=== PATIENT | male | born 1930 | race Caucasian/White ===

== ENCOUNTER 2019-06-04 15:07 | Inpatient (IN) ==
[2019-06-04] MEDS ORDERED: PANTOPRAZOLE 40 MG VIAL IV STA (15:25)
[2019-06-04] MEDS ORDERED: SODIUM CHLORIDE 0.9% 500 ML IV STA (15:25)
[2019-06-04 15:49] LABS: Basophils % 0.3 % (0.0-0.8); Eosinophils % 0.2 % (0.00-10.9); Hematocrit 24.1 VOL% (42.0-52.0); Hemoglobin 7.8 GM/DL (14.0-18.0); Immature Granulocytes % 0.8 %; Immature Granulocytes Absolute 0.09 #; Lymphocytes % 8.9 % (21.2-54.2); Mean Corpuscular HGB Conc 32.4 GM/DL (32-36); Mean Corpuscular Volume 94.1 FL (87-102); Monocytes % 8.9 % (1.7-12.7); Neutrophils % 80.9 % (38.7-73.9); Platelet Count 277 T/CUMM (130-400); Red Blood Count 2.56 MC/CUMM (3.8-5.5); Red Cell Distribution Width 13.9 % (9.3-17.3); White Blood Count 11.1 T/CUMM (4-12)
[2019-06-04 16:00] LABS: Albumin 3.5 G/DL (3.4-5.0); Bilirubin,Total 0.7 MG/DL (0.2-1.0); Calcium 8.5 MG/DL (8.5-10.1); Osmolality,Calculated 280.2 MOS/KG (273-304); Total Protein 5.9 G/DL (6.4-8.3)
[2019-06-04 16:04] LABS: INR 1.5; PT Patient Result 15.6 SECS (9.8-11.9); Partial Thromboplastin Time 39.9 SECS (23.9-33.8)
[2019-06-04] MEDS ORDERED: DEXTROSE 50% 25 GM/50 ML VIAL IV PRN (17:09)
[2019-06-04] MEDS ORDERED: CALCIUM CARBONATE CHEW 500 MG TABLET PO PRN (17:09)
[2019-06-04] MEDS ORDERED: SIMETHICONE CHEW 125 MG TABLET PO PRN (17:09)
[2019-06-04] MEDS ORDERED: guaiFENesin/DM ER 600-30 MG TABLET PO PRN (17:09)
[2019-06-04] MEDS ORDERED: hydrALAZINE 20 MG/1 ML VIAL IV PRN (17:09)
[2019-06-04] MEDS ORDERED: LACTULOSE 20 GM/30 ML UDCUP PO PRN (17:09)
[2019-06-04] MEDS ORDERED: BISACODYL 5 MG TABLET PO PRN (17:09)
[2019-06-04] MEDS ORDERED: ALUMINUM/MAGNES/SIMETH MAX STR 30 ML UDCUP PO PRN (17:09)
[2019-06-04] MEDS ORDERED: GLUCAGON 1 MG VIAL IM PRN (17:09)
[2019-06-04] MEDS ORDERED: ZALEPLON 5 MG CAPSULE PO PRN (17:09)
[2019-06-04] MEDS ORDERED: ONDANSETRON 4 MG/2 ML VIAL IV PRN (17:09)
[2019-06-04] MEDS ORDERED: ACETAMINOPHEN 325 MG TABLET PO PRN (17:09)
[2019-06-04] MEDS ORDERED: DOCUSATE SODIUM 100 MG CAPSULE PO PRN (17:09)
[2019-06-04] MEDS ORDERED: SODIUM CHLORIDE 0.9% 1,000 ML IV PRN (17:14)
[2019-06-04] MEDS: SODIUM CHLORIDE 0.9% 1,000 ML IV SCH (19:07)
[2019-06-04] MEDS: PANTOPRAZOLE 40 MG VIAL IV SCH (20:49)
[2019-06-04] MEDS: cilostazoL 50 MG TABLET PO SCH (20:49)
[2019-06-04] MEDS ORDERED: ATORVASTATIN 10 MG TABLET PO SCH (21:00)
[2019-06-04 23:38] LABS: Apearance,Urine CLEAR (Clear); Bacteria,Urine Occasional /HPF (Few); Bilirubin,Urine Negative (Negative); Blood, Urine Negative (Negative); Glucose,Urine (UA) Negative (Negative); Hyaline Casts,Urine 21 /LPF (0-3); Ketones,Urine Negative (Negative); Mucus,Urine Occasional /LPF (Occasional); Nitrite,Urine Negative (Negative); Protein,Urine Negative; Squamous Epithelial Cell,Urine Occasional /HPF (0-10); Urine Color Yellow (Yellow); Urine Specific Gravity 1.017 (1.001-1.035); Urine Urobilinogen < 2.0 EU/DL (0.2-1.0); WBC,Urine 3 /HPF (0-6)
[2019-06-05 00:21] LABS: RBC,Urine 2 /HPF (0-4)
[2019-06-05 06:23] LABS: Basophils % 0.3 % (0.0-0.8); Eosinophils % 0.1 % (0.00-10.9); Hematocrit 23.9 VOL% (42.0-52.0); Immature Granulocytes % 0.8 %; Immature Granulocytes Absolute 0.11 #; Lymphocytes # 1.1 10*3/uL (1.4-4.0); Lymphocytes % 8.3 % (21.2-54.2); Mean Corpuscular HGB Conc 33.5 GM/DL (32-36); Mean Corpuscular Volume 91.2 FL (87-102); Mean Platelet Volume 10.5 FL (9.6-12.0); Monocytes % 8.3 % (1.7-12.7); Neutrophils % 82.2 % (38.7-73.9); Platelet Count 213 T/CUMM (130-400); Red Blood Count 2.62 MC/CUMM (3.8-5.5); Red Cell Distribution Width 14.1 % (9.3-17.3); White Blood Count 13.1 T/CUMM (4-12)
[2019-06-05 06:43] LABS: % Iron Saturation 52.2 % (18-50); Ferritin 30.8 ng/ml (26-388)
[2019-06-05 06:48] LABS: Bilirubin,Total 1.8 MG/DL (0.2-1.0); Calcium 8.2 MG/DL (8.5-10.1); Osmolality,Calculated 288.7 MOS/KG (273-304); Risk Ratio 1.56; Thyroid Stimulating Hormone 1.61 uIU/ml (0.358-3.74); Total Protein 5.2 G/DL (6.4-8.3)
[2019-06-05 07:16] LABS: Folate 14.3 NG/ML (5.4-24.0)
[2019-06-05] MEDS: atenoloL 25 MG TABLET PO SCH (09:51)
[2019-06-05] MEDS: PANTOPRAZOLE 40 MG VIAL IV SCH ×2 (09:51→21:42)
[2019-06-05] MEDS: SERTRALINE 25 MG TABLET PO SCH (09:51)
[2019-06-05] MEDS: cilostazoL 50 MG TABLET PO SCH ×2 (09:51→21:41)
[2019-06-05] MEDS: SODIUM CHLORIDE 0.9% 1,000 ML IV SCH (15:47)
[2019-06-05] MEDS: ATORVASTATIN 10 MG TABLET PO SCH (21:41)
[2019-06-05] MEDS: OMEGA 3 ACID ETHYL ESTERS 1 GM CAPSULE PO SCH (21:41)
[2019-06-06] MEDS: SODIUM CHLORIDE 0.9% 1,000 ML IV SCH (04:37)
[2019-06-06 04:57] LABS: Albumin 2.4 G/DL (3.4-5.0); Bilirubin,Total 1.2 MG/DL (0.2-1.0); Calcium 7.8 MG/DL (8.5-10.1); Osmolality,Calculated 288.7 MOS/KG (273-304); Total Protein 4.2 G/DL (6.4-8.3)
[2019-06-06 05:23] LABS: Basophils % 0.1 % (0.0-0.8); Eosinophils % 0.4 % (0.00-10.9); Immature Granulocytes Absolute 0.08 #; Lymphocytes # 1.2 10*3/uL (1.4-4.0); Lymphocytes % 14.5 % (21.2-54.2); Mean Corpuscular HGB Conc 32.7 GM/DL (32-36); Mean Corpuscular Volume 93.4 FL (87-102); Mean Platelet Volume 11.4 FL (9.6-12.0); Monocytes % 13.7 % (1.7-12.7); Neutrophils % 70.3 % (38.7-73.9); Platelet Count 167 T/CUMM (130-400); Red Blood Count 1.67 MC/CUMM (3.8-5.5); Red Cell Distribution Width 14.9 % (9.3-17.3); White Blood Count 8.4 T/CUMM (4-12)
[2019-06-06 05:40] LABS: Hematocrit 15.6 VOL% (42.0-52.0); Hemoglobin 5.1 GM/DL (14.0-18.0)
[2019-06-06] MEDS ORDERED: SODIUM CHLORIDE 0.9% 1,000 ML IV PRN ×4 (05:44→16:24)
[2019-06-06] MEDS: COENZYME Q10 100 MG CAPSULE PO SCH (10:16)
[2019-06-06] MEDS: CYANOCOBALAMIN 500 MCG TABLET PO SCH (10:17)
[2019-06-06] MEDS: OMEGA 3 ACID ETHYL ESTERS 1 GM CAPSULE PO SCH ×2 (10:17→21:02)
[2019-06-06] MEDS: cilostazoL 50 MG TABLET PO SCH ×2 (10:18→21:02)
[2019-06-06] MEDS: SERTRALINE 25 MG TABLET PO SCH (10:18)
[2019-06-06] MEDS: atenoloL 25 MG TABLET PO SCH (10:19)
[2019-06-06] MEDS: PANTOPRAZOLE 40 MG VIAL IV SCH ×2 (10:22→21:03)
[2019-06-06] MEDS ORDERED: POLYETHYLENE GLYCOL 3350/ELECTROLYTES 4,000 ML BOTTLE PO ONE (18:00)
[2019-06-06] MEDS: ATORVASTATIN 10 MG TABLET PO SCH (21:02)
[2019-06-07 04:15] LABS: Basophils % 0.3 % (0.0-0.8); Eosinophils # 0.1 10*3/uL (0.0-0.87); Eosinophils % 0.5 % (0.00-10.9); Hematocrit 23.7 VOL% (42.0-52.0); Lymphocytes # 1.6 10*3/uL (1.4-4.0); Lymphocytes % 15.2 % (21.2-54.2); Mean Corpuscular HGB Conc 33.8 GM/DL (32-36); Mean Corpuscular Volume 90.5 FL (87-102); Mean Platelet Volume 10.6 FL (9.6-12.0); Monocytes % 12.1 % (1.7-12.7); Neutrophils % 70.9 % (38.7-73.9); Platelet Count 143 T/CUMM (130-400); Red Blood Count 2.62 MC/CUMM (3.8-5.5); White Blood Count 10.4 T/CUMM (4-12)
[2019-06-07 04:42] LABS: Albumin 2.4 G/DL (3.4-5.0); Bilirubin,Total 1.2 MG/DL (0.2-1.0); Calcium 7.6 MG/DL (8.5-10.1); Osmolality,Calculated 292.4 MOS/KG (273-304); Total Protein 4.2 G/DL (6.4-8.3)
[2019-06-07] MEDS ORDERED: MAGNESIUM SULF RIDER 4 GM in PREMIX 1 EACH IV ONE (09:02)
[2019-06-07] MEDS ORDERED: LIDOCAINE 2% 5 ML VIAL ONE (09:53)
[2019-06-07] MEDS ORDERED: propofoL 200 MG/20 ML VIAL IV ONE (09:53)
[2019-06-07] MEDS ORDERED: ETOMIDATE 40 MG/20 ML VIAL IV ONE (09:54)
[2019-06-07] MEDS ORDERED: PHENYLEPHRINE 1 MG/10 ML SYRINGE IV ONE (09:54)
[2019-06-07] MEDS: PANTOPRAZOLE 40 MG VIAL IV SCH ×2 (12:28→21:22)
[2019-06-07] MEDS: OMEGA 3 ACID ETHYL ESTERS 1 GM CAPSULE PO SCH ×2 (12:32→21:21)
[2019-06-07] MEDS: COENZYME Q10 100 MG CAPSULE PO SCH (12:34)
[2019-06-07] MEDS: CYANOCOBALAMIN 500 MCG TABLET PO SCH (12:36)
[2019-06-07] MEDS: SERTRALINE 25 MG TABLET PO SCH (12:36)
[2019-06-07] MEDS: cilostazoL 50 MG TABLET PO SCH (12:37)
[2019-06-07 14:35] LABS: Hematocrit 26.7 VOL% (42.0-52.0); Hemoglobin 8.5 GM/DL (14.0-18.0)
[2019-06-07] MEDS: SODIUM CHLORIDE 0.9% 1,000 ML IV SCH (15:07)
[2019-06-07] MEDS: FOLIC ACID 1 MG TABLET PO SCH (15:09)
[2019-06-07] MEDS: ATORVASTATIN 10 MG TABLET PO SCH (21:21)
[2019-06-07] MEDS: LORazepam 2 MG/1 ML VIAL IV PRN (21:30)
[2019-06-07] MEDS ORDERED: HALOPERIDOL 5 MG/ML AMP IM ONE (22:29)
[2019-06-08 05:27] LABS: Basophils % 0.1 % (0.0-0.8); Eosinophils % 0.1 % (0.00-10.9); Hematocrit 23.7 VOL% (42.0-52.0); Hemoglobin 7.8 GM/DL (14.0-18.0); Immature Granulocytes Absolute 0.08 #; Lymphocytes # 0.9 10*3/uL (1.4-4.0); Mean Corpuscular HGB Conc 32.9 GM/DL (32-36); Mean Corpuscular Volume 93.3 FL (87-102); Mean Platelet Volume 10.6 FL (9.6-12.0); Monocytes % 9.7 % (1.7-12.7); Neutrophils % 78.1 % (38.7-73.9); Platelet Count 158 T/CUMM (130-400); Red Blood Count 2.54 MC/CUMM (3.8-5.5); Red Cell Distribution Width 15.7 % (9.3-17.3); White Blood Count 8.4 T/CUMM (4-12)
[2019-06-08] MEDS ORDERED: MAGNESIUM SULF RIDER 4 GM in PREMIX 1 EACH IV PRN (08:08)
[2019-06-08] MEDS: PANTOPRAZOLE 40 MG VIAL IV SCH ×2 (09:47→20:38)
[2019-06-08] MEDS: FOLIC ACID 1 MG TABLET PO SCH (09:47)
[2019-06-08] MEDS: OMEGA 3 ACID ETHYL ESTERS 1 GM CAPSULE PO SCH ×2 (09:47→20:37)
[2019-06-08] MEDS: SERTRALINE 25 MG TABLET PO SCH (09:47)
[2019-06-08] MEDS: atenoloL 25 MG TABLET PO SCH (09:47)
[2019-06-08] MEDS: CYANOCOBALAMIN 500 MCG TABLET PO SCH (09:47)
[2019-06-08] MEDS: THIAMINE 100 MG TABLET PO SCH (09:47)
[2019-06-08] MEDS: COENZYME Q10 100 MG CAPSULE PO SCH (11:06)
[2019-06-08] MEDS: SODIUM CHLORIDE 0.9% 1,000 ML IV SCH (11:07)
[2019-06-08] MEDS ORDERED: HALOPERIDOL 5 MG/ML AMP IM ONE (11:49)
[2019-06-08 13:10] LABS: Hematocrit 27.1 VOL% (42.0-52.0); Hemoglobin 8.8 GM/DL (14.0-18.0)
[2019-06-08] MEDS: ATORVASTATIN 10 MG TABLET PO SCH (20:38)
[2019-06-09 05:09] LABS: Basophils % 0.1 % (0.0-0.8); Hematocrit 24.7 VOL% (42.0-52.0); Immature Granulocytes % 0.8 %; Immature Granulocytes Absolute 0.06 #; Lymphocytes # 0.8 10*3/uL (1.4-4.0); Lymphocytes % 11.1 % (21.2-54.2); Mean Corpuscular HGB Conc 32.4 GM/DL (32-36); Mean Corpuscular Volume 93.2 FL (87-102); Mean Platelet Volume 10.9 FL (9.6-12.0); Monocytes % 11.1 % (1.7-12.7); Neutrophils % 76.9 % (38.7-73.9); Platelet Count 143 T/CUMM (130-400); Red Blood Count 2.65 MC/CUMM (3.8-5.5); Red Cell Distribution Width 15.9 % (9.3-17.3); White Blood Count 7.5 T/CUMM (4-12)
[2019-06-09 05:24] LABS: Osmolality,Calculated 289.3 MOS/KG (273-304)
[2019-06-09] MEDS: MAGNESIUM SULF RIDER 2 GM in PREMIX 1 EACH IV PRN (06:39)
[2019-06-09] MEDS: POTASSIUM CHLORIDE RIDER 10 MEQ in PREMIX 1 EACH IV PRN ×3 (06:39→10:12)
[2019-06-09] MEDS ORDERED: POTASSIUM CHLORIDE 20 MEQ TABLET PO PRN (07:07)
[2019-06-09] MEDS: COENZYME Q10 100 MG CAPSULE PO SCH (08:50)
[2019-06-09] MEDS: atenoloL 25 MG TABLET PO SCH (08:51)
[2019-06-09] MEDS: OMEGA 3 ACID ETHYL ESTERS 1 GM CAPSULE PO SCH ×2 (08:51→21:52)
[2019-06-09] MEDS: SERTRALINE 25 MG TABLET PO SCH (08:51)
[2019-06-09] MEDS: CYANOCOBALAMIN 500 MCG TABLET PO SCH (08:51)
[2019-06-09] MEDS: THIAMINE 100 MG TABLET PO SCH (08:51)
[2019-06-09] MEDS: FOLIC ACID 1 MG TABLET PO SCH (08:51)
[2019-06-09] MEDS: PANTOPRAZOLE 40 MG VIAL IV SCH ×2 (08:53→21:34)
[2019-06-09] MEDS: SODIUM CHLORIDE 0.9% 1,000 ML IV SCH (08:53)
[2019-06-09] MEDS: LEVOFLOXACIN INJ 750 MG in PREMIX 1 EACH IV SCH (12:19)
[2019-06-09] MEDS ORDERED: TUBERCULIN SKIN TEST 0.1 ML SYRINGE INTRADERM ONE (13:30)
[2019-06-09] MEDS: ALBUTEROL/IPRATROPIUM 3 ML NEB RESP TX SCH ×3 (13:50→23:31)
[2019-06-09] MEDS: CEFEPIME 1,000 MG in SODIUM CHLORIDE 0.9% 100 ML IV SCH ×2 (15:11→21:33)
[2019-06-09] MEDS: ATORVASTATIN 10 MG TABLET PO SCH (21:50)
[2019-06-10] MEDS: LORazepam 2 MG/1 ML VIAL IV PRN (00:26)
[2019-06-10] MEDS: CEFEPIME 1,000 MG in SODIUM CHLORIDE 0.9% 100 ML IV SCH ×4 (03:46→20:32)
[2019-06-10] MEDS: ALBUTEROL/IPRATROPIUM 3 ML NEB RESP TX SCH (07:42)
[2019-06-10] MEDS: COENZYME Q10 100 MG CAPSULE PO SCH ×2 (08:15→10:49)
[2019-06-10] MEDS: OMEGA 3 ACID ETHYL ESTERS 1 GM CAPSULE PO SCH ×3 (08:15→20:35)
[2019-06-10] MEDS: FOLIC ACID 1 MG TABLET PO SCH ×2 (08:16→10:49)
[2019-06-10] MEDS: THIAMINE 100 MG TABLET PO SCH ×2 (08:16→10:50)
[2019-06-10] MEDS: SERTRALINE 25 MG TABLET PO SCH ×2 (08:16→10:50)
[2019-06-10] MEDS: atenoloL 25 MG TABLET PO SCH ×2 (08:17→10:50)
[2019-06-10] MEDS: PANTOPRAZOLE 40 MG VIAL IV SCH ×2 (08:20→23:01)
[2019-06-10] MEDS: CYANOCOBALAMIN 500 MCG TABLET PO SCH (10:49)
[2019-06-10] MEDS: MAGNESIUM SULF RIDER 2 GM in PREMIX 1 EACH IV PRN (11:46)
[2019-06-10] MEDS: SODIUM CHLORIDE 0.9% 1,000 ML IV SCH (14:00)
[2019-06-10] MEDS: LEVOFLOXACIN INJ 750 MG in PREMIX 1 EACH IV SCH (14:00)
[2019-06-10] MEDS: POTASSIUM CHLORIDE RIDER 10 MEQ in PREMIX 1 EACH IV PRN ×2 (16:00→18:40)
[2019-06-10] MEDS: ATORVASTATIN 10 MG TABLET PO SCH (20:35)
[2019-06-10 21:35] LABS: Basophils % 0.2 % (0.0-0.8); Eosinophils # 0.1 10*3/uL (0.0-0.87); Eosinophils % 0.5 % (0.00-10.9); Hematocrit 28.1 VOL% (42.0-52.0); Hemoglobin 9.1 GM/DL (14.0-18.0); Immature Granulocytes % 1.3 %; Immature Granulocytes Absolute 0.17 #; Lymphocytes % 7.8 % (21.2-54.2); Mean Corpuscular HGB Conc 32.4 GM/DL (32-36); Mean Corpuscular Volume 93.7 FL (87-102); Mean Platelet Volume 11.2 FL (9.6-12.0); Neutrophils % 81.2 % (38.7-73.9); Platelet Count 214 T/CUMM (130-400); Red Cell Distribution Width 15.9 % (9.3-17.3); White Blood Count 13.2 T/CUMM (4-12)
[2019-06-10 21:53] LABS: Calcium 8.5 MG/DL (8.5-10.1); Osmolality,Calculated 287.4 MOS/KG (273-304)
[2019-06-11] MEDS: CEFEPIME 1,000 MG in SODIUM CHLORIDE 0.9% 100 ML IV SCH ×4 (03:35→22:45)
[2019-06-11 04:42] LABS: Basophils % 0.3 % (0.0-0.8); Eosinophils # 0.2 10*3/uL (0.0-0.87); Eosinophils % 1.6 % (0.00-10.9); Hematocrit 27.6 VOL% (42.0-52.0); Hemoglobin 8.7 GM/DL (14.0-18.0); Immature Granulocytes % 1.1 %; Immature Granulocytes Absolute 0.15 #; Lymphocytes # 1.2 10*3/uL (1.4-4.0); Lymphocytes % 8.8 % (21.2-54.2); Mean Corpuscular HGB Conc 31.5 GM/DL (32-36); Mean Corpuscular Volume 94.5 FL (87-102); Monocytes % 7.6 % (1.7-12.7); Neutrophils % 80.6 % (38.7-73.9); Platelet Count 233 T/CUMM (130-400); Red Blood Count 2.92 MC/CUMM (3.8-5.5); Red Cell Distribution Width 15.9 % (9.3-17.3); White Blood Count 13.4 T/CUMM (4-12)
[2019-06-11 05:02] LABS: Calcium 8.2 MG/DL (8.5-10.1)
[2019-06-11] MEDS: POTASSIUM CHLORIDE RIDER 10 MEQ in PREMIX 1 EACH IV PRN (07:30)
[2019-06-11] MEDS: COENZYME Q10 100 MG CAPSULE PO SCH (10:30)
[2019-06-11] MEDS: FOLIC ACID 1 MG TABLET PO SCH (10:30)
[2019-06-11] MEDS: OMEGA 3 ACID ETHYL ESTERS 1 GM CAPSULE PO SCH ×2 (10:31→22:47)
[2019-06-11] MEDS: atenoloL 25 MG TABLET PO SCH (10:31)
[2019-06-11] MEDS: THIAMINE 100 MG TABLET PO SCH (10:31)
[2019-06-11] MEDS: SERTRALINE 25 MG TABLET PO SCH (10:31)
[2019-06-11] MEDS: CYANOCOBALAMIN 500 MCG TABLET PO SCH (10:31)
[2019-06-11] MEDS: SODIUM CHLORIDE 0.9% 1,000 ML IV SCH (10:40)
[2019-06-11] MEDS: PANTOPRAZOLE 40 MG VIAL IV SCH ×2 (10:41→22:47)
[2019-06-11] MEDS: LEVOFLOXACIN INJ 750 MG in PREMIX 1 EACH IV SCH (12:45)
[2019-06-11 19:18] LABS: Apearance,Urine CLEAR (Clear); Bacteria,Urine Occasional /HPF (Few); Bilirubin,Urine Negative (Negative); Blood, Urine Negative (Negative); Glucose,Urine (UA) Negative (Negative); Hyaline Casts,Urine 4 /LPF (0-3); Ketones,Urine 20 mg/dL (Negative); Mucus,Urine Occasional /LPF (Occasional); Nitrite,Urine Negative (Negative); Protein,Urine Negative; RBC,Urine 1 /HPF (0-4); Urine Color Yellow (Yellow); Urine Urobilinogen < 2.0 EU/DL (0.2-1.0); WBC,Urine 2 /HPF (0-6)
[2019-06-11] MEDS: ATORVASTATIN 10 MG TABLET PO SCH (22:46)
[2019-06-12] MEDS: CEFEPIME 1,000 MG in SODIUM CHLORIDE 0.9% 100 ML IV SCH ×2 (03:40→09:49)
[2019-06-12 04:50] LABS: Basophils % 0.3 % (0.0-0.8); Eosinophils # 0.5 10*3/uL (0.0-0.87); Eosinophils % 3.9 % (0.00-10.9); Hemoglobin 8.2 GM/DL (14.0-18.0); Immature Granulocytes % 1.1 %; Immature Granulocytes Absolute 0.12 #; Lymphocytes # 1.2 10*3/uL (1.4-4.0); Lymphocytes % 10.5 % (21.2-54.2); Mean Corpuscular HGB Conc 30.4 GM/DL (32-36); Mean Corpuscular Volume 97.1 FL (87-102); Mean Platelet Volume 10.8 FL (9.6-12.0); Monocytes % 8.1 % (1.7-12.7); Neutrophils % 76.1 % (38.7-73.9); Platelet Count 248 T/CUMM (130-400); Red Blood Count 2.78 MC/CUMM (3.8-5.5); Red Cell Distribution Width 15.8 % (9.3-17.3); White Blood Count 11.4 T/CUMM (4-12)
[2019-06-12 04:59] LABS: Calcium 8.1 MG/DL (8.5-10.1); Osmolality,Calculated 290.8 MOS/KG (273-304)
[2019-06-12] MEDS: COENZYME Q10 100 MG CAPSULE PO SCH (10:09)
[2019-06-12] MEDS: THIAMINE 100 MG TABLET PO SCH (10:11)
[2019-06-12] MEDS: atenoloL 25 MG TABLET PO SCH (10:11)
[2019-06-12] MEDS: SERTRALINE 25 MG TABLET PO SCH (10:11)
[2019-06-12] MEDS: FOLIC ACID 1 MG TABLET PO SCH (10:11)
[2019-06-12] MEDS: CYANOCOBALAMIN 500 MCG TABLET PO SCH (10:12)
[2019-06-12] MEDS: PANTOPRAZOLE 40 MG VIAL IV SCH ×2 (10:12→21:07)
[2019-06-12] MEDS: OMEGA 3 ACID ETHYL ESTERS 1 GM CAPSULE PO SCH ×2 (10:21→21:22)
[2019-06-12] MEDS: cefTRIAXone 2,000 MG in SYRINGE 1 EACH IV SCH (14:06)
[2019-06-12] MEDS: ATORVASTATIN 80 MG TABLET PO SCH (21:07)
[2019-06-13 05:50] LABS: Basophils # 0.1 10*3/uL (0.0-0.2); Basophils % 0.5 % (0.0-0.8); Eosinophils # 0.9 10*3/uL (0.0-0.87); Eosinophils % 5.5 % (0.00-10.9); Hematocrit 29.2 VOL% (42.0-52.0); Hemoglobin 9.3 GM/DL (14.0-18.0); Immature Granulocytes % 1.3 %; Lymphocytes # 1.8 10*3/uL (1.4-4.0); Lymphocytes % 11.4 % (21.2-54.2); Mean Corpuscular HGB Conc 31.8 GM/DL (32-36); Mean Corpuscular Volume 92.7 FL (87-102); Mean Platelet Volume 10.9 FL (9.6-12.0); Monocytes % 8.5 % (1.7-12.7); NRBC # 0.02 10*3/uL; Neutrophils % 72.8 % (38.7-73.9); Platelet Count 321 T/CUMM (130-400); Red Blood Count 3.15 MC/CUMM (3.8-5.5); White Blood Count 15.5 T/CUMM (4-12)
[2019-06-13 06:11] LABS: Calcium 8.7 MG/DL (8.5-10.1); Osmolality,Calculated 292.8 MOS/KG (273-304)
[2019-06-13] MEDS: PANTOPRAZOLE 40 MG VIAL IV SCH ×2 (10:12→21:15)
[2019-06-13] MEDS: COENZYME Q10 100 MG CAPSULE PO SCH (10:12)
[2019-06-13] MEDS: OMEGA 3 ACID ETHYL ESTERS 1 GM CAPSULE PO SCH ×2 (10:12→21:15)
[2019-06-13] MEDS: FOLIC ACID 1 MG TABLET PO SCH (10:12)
[2019-06-13] MEDS: CYANOCOBALAMIN 500 MCG TABLET PO SCH (10:12)
[2019-06-13] MEDS: THIAMINE 100 MG TABLET PO SCH (10:12)
[2019-06-13] MEDS: atenoloL 25 MG TABLET PO SCH (10:12)
[2019-06-13] MEDS: SERTRALINE 25 MG TABLET PO SCH (10:12)
[2019-06-13] MEDS: cefTRIAXone 2,000 MG in SYRINGE 1 EACH IV SCH (15:06)
[2019-06-13] MEDS: ATORVASTATIN 80 MG TABLET PO SCH (21:15)
[2019-06-14 05:18] LABS: Basophils # 0.1 10*3/uL (0.0-0.2); Basophils % 0.7 % (0.0-0.8); Eosinophils # 0.8 10*3/uL (0.0-0.87); Eosinophils % 5.7 % (0.00-10.9); Hematocrit 30.4 VOL% (42.0-52.0); Hemoglobin 9.4 GM/DL (14.0-18.0); Immature Granulocytes % 1.5 %; Immature Granulocytes Absolute 0.21 #; Lymphocytes # 1.8 10*3/uL (1.4-4.0); Lymphocytes % 13.2 % (21.2-54.2); Mean Corpuscular HGB Conc 30.9 GM/DL (32-36); Mean Corpuscular Volume 94.7 FL (87-102); Mean Platelet Volume 10.9 FL (9.6-12.0); Monocytes % 7.8 % (1.7-12.7); Neutrophils % 71.1 % (38.7-73.9); Platelet Count 369 T/CUMM (130-400); Red Blood Count 3.21 MC/CUMM (3.8-5.5); Red Cell Distribution Width 15.9 % (9.3-17.3); White Blood Count 13.6 T/CUMM (4-12)
[2019-06-14 05:44] LABS: Calcium 8.7 MG/DL (8.5-10.1); Osmolality,Calculated 293.7 MOS/KG (273-304)
[2019-06-14] MEDS: OMEGA 3 ACID ETHYL ESTERS 1 GM CAPSULE PO SCH ×3 (06:50→20:19)
[2019-06-14] MEDS: PANTOPRAZOLE 40 MG VIAL IV SCH ×2 (09:45→20:19)
[2019-06-14] MEDS: atenoloL 25 MG TABLET PO SCH (09:45)
[2019-06-14] MEDS: FOLIC ACID 1 MG TABLET PO SCH (09:45)
[2019-06-14] MEDS: CYANOCOBALAMIN 500 MCG TABLET PO SCH (09:45)
[2019-06-14] MEDS: SERTRALINE 25 MG TABLET PO SCH (09:45)
[2019-06-14] MEDS: THIAMINE 100 MG TABLET PO SCH (09:45)
[2019-06-14] MEDS: COENZYME Q10 100 MG CAPSULE PO SCH (09:45)
[2019-06-14] MEDS: cefTRIAXone 2,000 MG in SYRINGE 1 EACH IV SCH (14:30)
[2019-06-14] MEDS: ATORVASTATIN 80 MG TABLET PO SCH (20:19)
[2019-06-15 06:33] LABS: Basophils # 0.1 10*3/uL (0.0-0.2); Basophils % 0.6 % (0.0-0.8); Eosinophils # 0.6 10*3/uL (0.0-0.87); Eosinophils % 4.6 % (0.00-10.9); Hematocrit 34.1 VOL% (42.0-52.0); Hemoglobin 10.4 GM/DL (14.0-18.0); Immature Granulocytes % 1.5 %; Immature Granulocytes Absolute 0.19 #; Lymphocytes # 1.8 10*3/uL (1.4-4.0); Lymphocytes % 14.2 % (21.2-54.2); Mean Corpuscular HGB Conc 30.5 GM/DL (32-36); Mean Corpuscular Volume 95.3 FL (87-102); Mean Platelet Volume 11.5 FL (9.6-12.0); Monocytes % 8.1 % (1.7-12.7); Platelet Count 301 T/CUMM (130-400); Red Blood Count 3.58 MC/CUMM (3.8-5.5); Red Cell Distribution Width 15.9 % (9.3-17.3); White Blood Count 12.4 T/CUMM (4-12)
[2019-06-15 06:40] LABS: Calcium 8.8 MG/DL (8.5-10.1); Osmolality,Calculated 296.4 MOS/KG (273-304)
[2019-06-15 06:56] LABS: Hypochromasia 1+; Ovalocytes Slight
[2019-06-15 06:57] LABS: Acanthocytes Few; Anisocytosis 1+; Microcytosis 1+
[2019-06-15 06:58] LABS: Platelet Estimate Normal
[2019-06-15] MEDS: FOLIC ACID 1 MG TABLET PO SCH (08:20)
[2019-06-15] MEDS: CYANOCOBALAMIN 500 MCG TABLET PO SCH (08:21)
[2019-06-15] MEDS: SERTRALINE 25 MG TABLET PO SCH (08:21)
[2019-06-15] MEDS: THIAMINE 100 MG TABLET PO SCH (08:21)
[2019-06-15] MEDS: PANTOPRAZOLE 40 MG VIAL IV SCH (08:21)
[2019-06-15] MEDS: MAGNESIUM SULF RIDER 2 GM in PREMIX 1 EACH IV PRN (08:22)
[2019-06-15] MEDS: COENZYME Q10 100 MG CAPSULE PO SCH (08:27)
[2019-06-15] MEDS: OMEGA 3 ACID ETHYL ESTERS 1 GM CAPSULE PO SCH (08:28)
[2019-06-15] MEDS: atenoloL 25 MG TABLET PO SCH (11:00)
[2019-06-15 11:29] VITALS: BP 131/55
[2019-06-15] MEDS: cefTRIAXone 2,000 MG in SYRINGE 1 EACH IV SCH (16:17)
[2019-06-15] MEDS ORDERED: PANTOPRAZOLE 40 MG TABLET PO SCH (21:00)
== END 2019-06-15 15:51 | disposition swing bed (61) | DRG 813 ==
LOC: EDBD → EDUNIT# → N.ED 15:07 → SUPCPDRO 17:09 → SUATTDRO 17:09 → N.EDINP 17:09 → N.3E 17:44 → N.CC 06-06 19:27 → N.TELES 06-07 16:29 → N.2E 06-09 19:06
PROVIDERS: ADMIT Internal Medicine; ATTEND Internal Medicine

== ENCOUNTER 2019-07-06 14:17 | Inpatient (IN) ==
[2019-07-06] MEDS ORDERED: SODIUM CHLORIDE 0.9% 1,000 ML IV STA (14:45)
[2019-07-06 15:32] LABS: Basophils % 0.2 % (0.0-0.8); Eosinophils % 0.1 % (0.00-10.9); Hematocrit 28.5 VOL% (42.0-52.0); Hemoglobin 8.2 GM/DL (14.0-18.0); Immature Granulocytes % 0.6 %; Immature Granulocytes Absolute 0.11 #; Lymphocytes # 0.9 10*3/uL (1.4-4.0); Mean Corpuscular HGB Conc 28.8 GM/DL (32-36); Mean Corpuscular Volume 92.8 FL (87-102); Mean Platelet Volume 11.9 FL (9.6-12.0); Monocytes % 4.3 % (1.7-12.7); Neutrophils % 89.8 % (38.7-73.9); Platelet Count 277 T/CUMM (130-400); Red Blood Count 3.07 MC/CUMM (3.8-5.5); Red Cell Distribution Width 17.7 % (9.3-17.3); White Blood Count 18.3 T/CUMM (4-12)
[2019-07-06 15:38] LABS: Apearance,Urine Slightly Hazy (Clear); Bacteria,Urine Occasional /HPF (Few); Bilirubin,Urine Negative (Negative); Blood, Urine Negative (Negative); Glucose,Urine (UA) Negative (Negative); Hyaline Casts,Urine 12 /LPF (0-3); Ketones,Urine Negative (Negative); Mucus,Urine Occasional /LPF (Occasional); Nitrite,Urine Negative (Negative); Protein,Urine Negative; Squamous Epithelial Cell,Urine Occasional /HPF (0-10); Urine Color Amber (Yellow); Urine Specific Gravity 1.021 (1.001-1.035); Urine Urobilinogen < 2.0 EU/DL (0.2-1.0); WBC,Urine 3 /HPF (0-6)
[2019-07-06 15:48] LABS: Albumin 2.1 G/DL (3.4-5.0); Bilirubin,Total 0.9 MG/DL (0.2-1.0); Calcium 8.8 MG/DL (8.5-10.1); Osmolality,Calculated 319.2 MOS/KG (273-304); Total Protein 5.7 G/DL (6.4-8.3)
[2019-07-06 16:24] LABS: Acanthocytes 1+; Anisocytosis 4+; Eosinophils 1 % (0-10); Hypochromasia 1+; Lymphocytes 6 % (20-55); Microcytosis 2+; Ovalocytes Slight; Platelet Estimate Normal; Poikilocytosis Slight; Segmented Neutrophils 91 % (50-85); Total Cells Counted 100
[2019-07-06] MEDS ORDERED: LACTULOSE 20 GM/30 ML UDCUP PO PRN (17:04)
[2019-07-06] MEDS ORDERED: ONDANSETRON 4 MG/2 ML VIAL IV PRN (17:04)
[2019-07-06] MEDS ORDERED: DOCUSATE SODIUM 100 MG CAPSULE PO PRN (17:04)
[2019-07-06] MEDS ORDERED: DEXTROSE 10% 250 ML BAG IV PRN (17:04)
[2019-07-06] MEDS ORDERED: GLUCAGON 1 MG VIAL IM PRN (17:04)
[2019-07-06] MEDS ORDERED: ENOXAPARIN 40 MG/0.4 ML SYRINGE SUBCUT SCH (21:00)
[2019-07-06] MEDS: LEVOFLOXACIN INJ 750 MG in PREMIX 1 EACH IV SCH (22:44)
[2019-07-06] MEDS: busPIRone 5 MG TABLET PO SCH (22:45)
[2019-07-06] MEDS: POTASSIUM CHLORIDE INJ 30 MEQ in DEXTROSE 5% 1,000 ML IV SCH (22:45)
[2019-07-06] MEDS: cilostazoL 50 MG TABLET PO SCH (22:46)
[2019-07-06] MEDS: ATORVASTATIN 10 MG TABLET PO SCH (22:46)
[2019-07-07 07:03] LABS: Basophils % 0.2 % (0.0-0.8); Eosinophils % 0.1 % (0.00-10.9); Hematocrit 26.3 VOL% (42.0-52.0); Hemoglobin 7.7 GM/DL (14.0-18.0); Immature Granulocytes % 0.8 %; Immature Granulocytes Absolute 0.15 #; Lymphocytes # 0.9 10*3/uL (1.4-4.0); Lymphocytes % 4.6 % (21.2-54.2); Mean Corpuscular HGB Conc 29.3 GM/DL (32-36); Mean Platelet Volume 11.2 FL (9.6-12.0); NRBC # 0.02 10*3/uL; Neutrophils % 90.3 % (38.7-73.9); Platelet Count 254 T/CUMM (130-400); Red Blood Count 2.89 MC/CUMM (3.8-5.5); Red Cell Distribution Width 17.8 % (9.3-17.3); White Blood Count 19.3 T/CUMM (4-12)
[2019-07-07] MEDS: POTASSIUM CHLORIDE INJ 30 MEQ in DEXTROSE 5% 1,000 ML IV SCH (07:04)
[2019-07-07 07:29] LABS: Bilirubin,Total 1.2 MG/DL (0.2-1.0); Calcium 8.4 MG/DL (8.5-10.1); Thyroid Stimulating Hormone 1.34 uIU/ml (0.358-3.74); Total Protein 5.3 G/DL (6.4-8.3)
[2019-07-07 07:36] LABS: Band Neutrophils 4 % (0-10); Burr Cells Slight; Hypochromasia 1+; Lymphocytes 3 % (20-55); Ovalocytes Slight; Platelet Estimate Adequate; Segmented Neutrophils 89 % (50-85); Total Cells Counted 100
[2019-07-07 07:37] LABS: Microcytosis Slight
[2019-07-07] MEDS ORDERED: POTASSIUM CHLORIDE 20 MEQ TABLET PO ONE (08:05)
[2019-07-07] MEDS ORDERED: DEXT 5% NACL 0.2% KCL 20 MEQ 20 MEQ/1,000 ML BAG IV SCH (08:30)
[2019-07-07] MEDS ORDERED: DEXTROSE 5% NACL 0.45% 1,000 ML IV SCH (08:30)
[2019-07-07] MEDS: busPIRone 5 MG TABLET PO SCH ×2 (09:56→21:55)
[2019-07-07] MEDS: PANTOPRAZOLE 40 MG TABLET PO SCH (09:56)
[2019-07-07] MEDS: cilostazoL 50 MG TABLET PO SCH ×2 (09:56→21:55)
[2019-07-07] MEDS: atenoloL 25 MG TABLET PO SCH (09:56)
[2019-07-07] MEDS: SERTRALINE 25 MG TABLET PO SCH (09:56)
[2019-07-07] MEDS: POTASSIUM CHLORIDE INJ 20 MEQ in DEXTROSE 5% NACL 0.22% 1,000 ML IV SCH ×2 (15:28→23:32)
[2019-07-07 15:39] LABS: Osmolality,Calculated 313.6 MOS/KG (273-304)
[2019-07-07] MEDS ORDERED: MAGNESIUM SULF RIDER 4 GM in PREMIX 1 EACH IV PRN (16:52)
[2019-07-07] MEDS ORDERED: MAGNESIUM SULF RIDER 2 GM in PREMIX 1 EACH IV PRN (16:52)
[2019-07-07] MEDS ORDERED: POTASSIUM CHLORIDE 20 MEQ/15 ML UDCUP PO ONE (16:54)
[2019-07-07] MEDS: POTASSIUM CHLORIDE RIDER 10 MEQ in PREMIX 1 EACH IV SCH ×2 (21:44→23:35)
[2019-07-07] MEDS: ATORVASTATIN 10 MG TABLET PO SCH (21:55)
[2019-07-08] MEDS: POTASSIUM CHLORIDE RIDER 10 MEQ in PREMIX 1 EACH IV SCH ×4 (00:33→23:08)
[2019-07-08 06:20] LABS: Basophils # 0.1 10*3/uL (0.0-0.2); Basophils % 0.2 % (0.0-0.8); Eosinophils # 0.1 10*3/uL (0.0-0.87); Eosinophils % 0.4 % (0.00-10.9); Hematocrit 24.6 VOL% (42.0-52.0); Hemoglobin 7.3 GM/DL (14.0-18.0); Immature Granulocytes % 3.1 %; Immature Granulocytes Absolute 0.89 #; Lymphocytes # 1.5 10*3/uL (1.4-4.0); Lymphocytes % 5.1 % (21.2-54.2); Mean Corpuscular HGB Conc 29.7 GM/DL (32-36); Mean Corpuscular Volume 89.1 FL (87-102); Mean Platelet Volume 11.8 FL (9.6-12.0); Monocytes % 4.3 % (1.7-12.7); Neutrophils % 86.9 % (38.7-73.9); Platelet Count 270 T/CUMM (130-400); Red Blood Count 2.76 MC/CUMM (3.8-5.5); Red Cell Distribution Width 18.2 % (9.3-17.3); White Blood Count 28.5 T/CUMM (4-12)
[2019-07-08 06:42] LABS: Calcium 7.8 MG/DL (8.5-10.1); Osmolality,Calculated 309.6 MOS/KG (273-304)
[2019-07-08 07:19] LABS: Band Neutrophils 4 % (0-10); Burr Cells Slight; Hypochromasia 1+; Lymphocytes 1 % (20-55); Ovalocytes Slight; Platelet Estimate Adequate; Segmented Neutrophils 93 % (50-85); Total Cells Counted 100
[2019-07-08 07:20] LABS: Microcytosis Slight
[2019-07-08] MEDS ORDERED: PHENYLEPHRINE 1 MG/10 ML SYRINGE IV ONE (09:00)
[2019-07-08] MEDS ORDERED: LIDOCAINE 2% 5 ML VIAL ONE (09:00)
[2019-07-08] MEDS ORDERED: propofoL 200 MG/20 ML VIAL IV ONE (09:00)
[2019-07-08] MEDS: POTASSIUM CHLORIDE INJ 20 MEQ in DEXTROSE 5% NACL 0.22% 1,000 ML IV SCH ×3 (10:04→18:17)
[2019-07-08] MEDS: cilostazoL 50 MG TABLET PO SCH ×2 (10:12→21:08)
[2019-07-08] MEDS: atenoloL 25 MG TABLET PO SCH (10:12)
[2019-07-08] MEDS: busPIRone 5 MG TABLET PO SCH ×2 (10:12→21:08)
[2019-07-08] MEDS: PANTOPRAZOLE 40 MG TABLET PO SCH (10:12)
[2019-07-08] MEDS: SERTRALINE 25 MG TABLET PO SCH (10:12)
[2019-07-08] MEDS: LACTATED RINGERS 1,000 ML IV SCH (15:29)
[2019-07-08] MEDS: LEVOFLOXACIN INJ 750 MG in PREMIX 1 EACH IV SCH (21:07)
[2019-07-08] MEDS: ATORVASTATIN 10 MG TABLET PO SCH (21:08)
[2019-07-09] MEDS: POTASSIUM CHLORIDE INJ 20 MEQ in DEXTROSE 5% NACL 0.22% 1,000 ML IV SCH ×2 (05:56→21:42)
[2019-07-09 06:39] LABS: Basophils # 0.1 10*3/uL (0.0-0.2); Basophils % 0.2 % (0.0-0.8); Eosinophils # 0.1 10*3/uL (0.0-0.87); Eosinophils % 0.3 % (0.00-10.9); Hematocrit 25.7 VOL% (42.0-52.0); Hemoglobin 7.9 GM/DL (14.0-18.0); Immature Granulocytes % 3.6 %; Immature Granulocytes Absolute 1.16 #; Lymphocytes # 1.6 10*3/uL (1.4-4.0); Mean Corpuscular HGB Conc 30.7 GM/DL (32-36); Mean Corpuscular Volume 87.4 FL (87-102); Mean Platelet Volume 11.4 FL (9.6-12.0); Monocytes % 3.3 % (1.7-12.7); NRBC # 0.02 10*3/uL; Neutrophils % 87.6 % (38.7-73.9); Platelet Count 267 T/CUMM (130-400); Red Blood Count 2.94 MC/CUMM (3.8-5.5); Red Cell Distribution Width 18.1 % (9.3-17.3); White Blood Count 32.2 T/CUMM (4-12)
[2019-07-09 07:17] LABS: Band Neutrophils 20 % (0-10); Lymphocytes 5 % (20-55); Platelet Estimate Normal; Segmented Neutrophils 72 % (50-85); Total Cells Counted 100
[2019-07-09 07:18] LABS: Anisocytosis 2+; Burr Cells 1+; Ovalocytes Few; Poikilocytosis 1+; Tear Drop Cells Few
[2019-07-09] MEDS: LACTATED RINGERS 1,000 ML IV SCH (10:29)
[2019-07-09] MEDS: busPIRone 5 MG TABLET PO SCH ×2 (10:29→20:25)
[2019-07-09] MEDS: atenoloL 25 MG TABLET PO SCH (10:30)
[2019-07-09] MEDS: cilostazoL 50 MG TABLET PO SCH ×2 (10:30→20:25)
[2019-07-09] MEDS: PANTOPRAZOLE 40 MG TABLET PO SCH (10:30)
[2019-07-09] MEDS: SERTRALINE 25 MG TABLET PO SCH (10:30)
[2019-07-09] MEDS: ATORVASTATIN 10 MG TABLET PO SCH (20:25)
[2019-07-10] MEDS: POTASSIUM CHLORIDE INJ 20 MEQ in DEXTROSE 5% NACL 0.22% 1,000 ML IV SCH ×3 (02:17→05:41)
[2019-07-10] MEDS: cilostazoL 50 MG TABLET PO SCH (10:25)
[2019-07-10] MEDS: SERTRALINE 25 MG TABLET PO SCH (10:25)
[2019-07-10] MEDS: atenoloL 25 MG TABLET PO SCH (10:25)
[2019-07-10] MEDS: PANTOPRAZOLE 40 MG TABLET PO SCH (10:25)
[2019-07-10] MEDS: busPIRone 5 MG TABLET PO SCH (10:25)
[2019-07-10 12:09] VITALS: BP 126/64
== END 2019-07-10 15:07 | disposition hospice, home (50) | DRG 177 ==
LOC: EDBD → EDUNIT# → N.ED 14:17 → SUATTDRO 17:04 → N.EDINP 17:04 → N.3E 18:28
PROVIDERS: ADMIT Family Medicine; ATTEND Internal Medicine